=== PATIENT | male | born 1975 | race Caucasian/White ===

== ENCOUNTER 2016-10-30 11:25 | Emergency (ER) | payer OTHER ==
[~2016-10-30] VITALS: Ht 165.1 cm; Wt 75.1 kg
[2016-10-30 11:27] VITALS: TEMP 36.8; Ht 165.1 cm; Wt 75.1 kg
[2016-10-30] MEDS ORDERED: ONDANSETRON 4MG OD TAB PO ONE (11:45)
[2016-10-30] MEDS ORDERED: FENTANYL CITRATE INJ 50 MCG/1 ML 2 ML VIAL IM ONE (11:45)
--- NOTE | 2016-10-30 12:14 | DIAGNOSTIC IMAGING REPORT ---
CT HEAD WITHOUT CONTRAST (CT) CLINICAL HISTORY: Severe headache and right facial pain. Trauma. COMPARISON STUDY: No previous studies for comparison. TECHNIQUE: Axial CT of the brain is performed from the vertex to the skull base. IV contrast was not administered for this examination. A dose lowering technique was utilized adhering to the principles of ALARA. CT DOSE: FINDINGS: There is a right anterior temporal arachnoid cyst measuring 27 mm. There is no CT evidence of acute cortical infarction. There is no midline shift. There is no acute hemorrhage. There is depressed right zygomatic arch fracture. There is no evidence of pathologic ventricular dilatation. There is no evidence of acute sinusitis IMPRESSION: 1. Depressed right zygomatic arch fracture 2. Right anterior temporal arachnoid cyst Electronically signed by: Elliott Bhat M.D. 10/30/2016 12:13 PM Dictated Date/Time: 10/30/2016 12:11 PM
--- NOTE | 2016-10-30 12:17 | DIAGNOSTIC IMAGING REPORT ---
CT FACIAL BONES-MXILLOFAC WITHOUT CT DOSE: 851.37 mGy.cm CLINICAL HISTORY: Right-sided facial pain status post trauma COMPARISON STUDY: No previous studies for comparison. TECHNIQUE: Helical images were acquired in the transverse plane. The study was reviewed and analyzed on the independent 3-D workstation. A dose lowering technique was utilized adhering to the principles of ALARA. There is a right anterior temporal arachnoid cyst The pterygoid plates appear intact. There is a depressed right zygomatic arch fracture. The arch is fractured in 3 places. The globes appear intact. There is no evidence of orbital emphysema. The orbital spring and floor appear intact. The mandibular condyles appear intact. IMPRESSION: Acute depressed right zygomatic arch fracture Electronically signed by: Elliott Bhat M.D. 10/30/2016 12:16 PM Dictated Date/Time: 10/30/2016 12:13 PM
[2016-10-30] MEDS ORDERED: OXYC1TAB3 PO (13:05)
[2016-10-30 13:19] VITALS: BP 118/74; PULSE 81; O2SAT 99
--- NOTE | 2016-10-30 20:41 | EMERGENCY ROOM VISIT NOTE ---
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 The patient denies any loss of consciousness, neck pain or other injuries from this incident. He rates his discomfort a 10 out of 10. He denies any per vision, epistaxis, nausea, difficulty swallowing. Review of Systems 10 system review was performed and was negative except for pertinent positives and negatives as indicated in history of present illness Past Medical/Surgical History Medical Problems: (1) Obstructive Sleep Apnea (Adult) (Pediatric) Surgical Problems: (1) No history of previous surgery Family History Unremarkable Social History Smoking Status: Never Smoker Alcohol Use: occasionally Marital Status: Housing Status: lives with family Occupation Status: employed Current/Historical Medications Scheduled PRN Oxycodone Ir (Roxicodone Ir), 1-2 TAB PO Q4H PRN for Pain Physical Exam Vital Signs Date Time Temp Pulse Resp B/P (MAP) Pulse Ox O2 Delivery O2 Flow Rate FiO2 10/30/16 13:19 81 18 118/74 99 10/30/16 11:27 36.8 105 18 139/90 99 Room Air Physical Exam CONSTITUTIONAL: Healthy and well nourished. Alert and oriented X 3 with positive affect. Patient appears in severe discomfort, and is crying. GCS 15. HEENT: Normocephalic, atraumatic. The patient has no open wounds, ecchymosis or significant edema to the right facial region. He is significantly tender over the zygomatic arch. No focal tenderness through the orbital rim or maxilla. Pupils equal, round and reactive. No subconjunctival hemorrhage, epistaxis or hemotympanum. OROPHARYNX: No ecchymosis or dental trauma noted. NECK: Full active range of motion without discomfort. MUSCULOSKELETAL: Full range of motion of all joints without discomfort. INTEGUMENTARY: No rash or other significant dermatologic conditions noted. NEUROLOGIC: Cranial nerves II-XII grossly intact. Facial sensations are intact. Medical Decision & Procedures ER Provider Diagnostic Interpretation: Noncontrast CT of the facial bone shows a depressed zygomatic arch fracture with no other acute facial fractures noted. Radiologist report is as follows: CT FACIAL BONES-MXILLOFAC WITHOUT CT DOSE: 851.37 mGy.cm CLINICAL HISTORY: Right-sided facial pain status post trauma COMPARISON STUDY: No previous studies for comparison. TECHNIQUE: Helical images were acquired in the transverse plane. The study was reviewed and analyzed on the independent 3-D workstation. A dose lowering technique was utilized adhering to the principles of ALARA. There is a right anterior temporal arachnoid cyst The pterygoid plates appear intact. There is a depressed right zygomatic arch fracture. The arch is fractured in 3 places. The globes appear intact. There is no evidence of orbital emphysema. The orbital spring and floor appear intact. The mandibular condyles appear intact. IMPRESSION: Acute depressed right zygomatic arch fracture Noncontrast CT of the head does not show any intracranial bleed, midline shift or mass effect. The same oppressed zygomatic arch fracture is noted in the following radiologist report: CT HEAD WITHOUT CONTRAST (CT) CLINICAL HISTORY: Severe headache and right facial pain. Trauma. COMPARISON STUDY: No previous studies for comparison. TECHNIQUE: Axial CT of the brain is performed from the vertex to the skull base. IV contrast was not administered for this examination. A dose lowering technique was utilized adhering to the principles of ALARA. CT DOSE: FINDINGS: There is a right anterior temporal arachnoid cyst measuring 27 mm. There is no CT evidence of acute cortical infarction. There is no midline shift. There is no acute hemorrhage. There is depressed right zygomatic arch fracture. There is no evidence of pathologic ventricular dilatation. There is no evidence of acute sinusitis IMPRESSION: 1. Depressed right zygomatic arch fracture 2. Right anterior temporal arachnoid cyst Medications Administered Medications (Trade) Dose Ordered Sig/Earl Route Start Time Stop Time Status Last Admin Dose Admin Ondansetron HCl (Zofran Odt) 4 mg ONE ONCE PO 10/30/16 11:45 10/30/16 11:46 DC 10/30/16 11:50 4 MG Fentanyl Citrate (Fentanyl Inj) 100 mcg NOW ONCE IM 10/30/16 11:45 10/30/16 11:46 DC 10/30/16 11:50 100 MCG ED Course Patient history and physical exam were performed. Nurse's notes were reviewed. Vital signs were reviewed and normal. The patient was in severe discomfort. He was administered fentanyl 100 g IM and Zofran [address] of the head and facial bones shows a 3 part depressed right zygomatic arch fracture. The patient reported significant reduction of his pain with the injected medications. The patient reports that he does not have insurance, and wanted to know if maxillofacial follow-up was needed. I did discuss the case further with Dr. Carter, maxillofacial surgeon on-call, who recommended that the patient follow-up in his office. He did suggest checking mandible range of motion as the masseter muscle and tendon does travel under zygomatic arch. Even if the patient does require surgical intervention, it can be done in the office for relatively low cost. This information was relayed back to the patient. He does have mild discomfort, but exhibits full active range of motion of the mandible. The patient reports that he will call the office on Tuesday for an appointment. The patient was provided a prescription for OxyIR 5 mg, and encouraged to alternate ibuprofen and Tylenol for baseline pain relief. Intermittently apply ice for swelling. Soft food diet for now. The patient was happy with plan of care, voiced understanding of all discharge instructions , and rated his pain a 3 out of 10 at the time of discharge. Medical Decision [place] Drug Monitoring Program Search Results: patient reviewed within database, no issues identified Head Trauma GCS Score: 15 Medication Reconcilliation Current Medication List: was personally reviewed by me Blood Pressure Screening Patient's blood pressure: Normal blood pressure Impression Primary Impression: Zygomatic fracture, right side, initial encounter for closed fracture Departure Information Prescriptions Oxycodone Ir (Roxicodone Ir) 5 Mg Tab 1-2 TAB PO Q4H Y for Pain, #15 TAB For Initial Treatment Prov: Asif Hammond PA 10/30/16 Referrals No Doctor, Assigned (PCP) Patient Instructions My [facility]
== END 2016-10-30 13:20 | disposition home or self-care (01) ==
LOC: C.EDB 11:27 → C.EDD 13:20
DX: S02.81XA Fracture of other specified skull and facial bones, right side, initial encounter for closed fracture (principal); W51.XXXA Accidental striking against or bumped into by another person, initial encounter; Y93.66 Activity, soccer; Y99.8 Other external cause status